=== PATIENT | male | born 1960 | race Caucasian/White ===

== ENCOUNTER 2020-07-06 04:17 | Observation (INO) | payer BC ==
[2020-07-06 05:44] LABS: Absolute Lymphocytes (CBC) 1.1 K/uL (0.7-4.9); Basophils % 0.6 % (0-1.3); Hematocrit 39.1 % (39.6-49.0); Lymphocytes % 10.9 % (15.3-44.8); RBC Red Blood Cell Count 4.26 M/uL (4.33-5.43)
[2020-07-06] MEDS ORDERED: dexAMETHasone 10 MG/ML VIAL ONE (05:45)
[2020-07-06] MEDS ORDERED: DIPHENHYDRAMINE 50 MG/ML VIAL ONE (05:45)
[2020-07-06] MEDS ORDERED: FAMOTIDINE 20 MG/2 ML VIAL IV ONE (05:46)
[2020-07-06] MEDS ORDERED: NA CHLORIDE 0.9% 500 ML ONE (05:46)
[2020-07-06] MEDS ORDERED: CEFTRIAXONE/SWI 1gm 1 GM/10 ML SYR ONE (05:46)
[2020-07-06] MEDS ORDERED: EPINEPHRINE INH 0.5 ML VIAL IH ONE (05:47)
[2020-07-06] MEDS ORDERED: EPINEPHRINE/PF 1 MG/ML AMP ONE (05:51)
[2020-07-06 05:56] LABS: Protime INR 0.86
[2020-07-06 06:05] LABS: ALT/SGPT 45 U/L (12-78); AST/SGOT 23 U/L (15-37); Albumin 3.9 g/dL (3.4-5.0); Alkaline Phosphatase 79 U/L (45-117); BUN Blood Urea Nitrogen 11 mg/dL (7-18); Bicarbonate 25 mmol/L (21-32); Bilirubin Direct < 0.1 mg/dL (0-0.2); Bilirubin Total 0.5 mg/dL (0.2-1.0); Glucose Level 160 mg/dL (74-106); NT PRO-BNP 43 pg/mL (<125); Potassium 4.3 mmol/L (3.5-5.1); Protein, Total 7.1 g/dL (6.4-8.2); Sodium Level 139 mmol/L (136-145); Troponin (Emerg Dept Use Only) < 0.02 ng/mL (0.0-0.045)
--- NOTE | 2020-07-06 07:22 | RAD REPORT ---
EXAM DESCRIPTION: [facility] Single View07/06/2020 5:32 am CLINICAL HISTORY: Cough COMPARISON: none FINDINGS: The lungs appear clear of acute infiltrate. The heart is normal size IMPRESSION: No acute abnormalities displayed
--- NOTE | 2020-07-06 07:29 | EDPHYS ---
Physician Documentation [facility] Name: Juan Dunn Age: 60 yrs Sex: Male : 1960 Arrival Date: 07/06/2020 Time: 04:18 Bed 17 Private MD: IESHA Physician Randal Mclean HPI: 07/06 05:14 This 60 yrs old Male presents to ER via Ambulatory with complaints of Throat cate Swelling, Breathing Difficulty. 05:14 The patient has shortness of breath at rest, with light activity. Onset: The cate symptoms/episode began/occurred 1 day(s) ago. Duration: The symptoms are continuous, and are steadily getting worse. The patient's shortness of breath has no apparent modifying factors. Associated signs and symptoms: Pertinent positives: non-productive cough. Severity of symptoms: At their worst the symptoms were moderate in the emergency department the symptoms are worse mildly. The patient has not experienced similar symptoms in the past. Historical: - Allergies: 04:40 No Known Allergies; sg - Home Meds: 08:27 pravastatin 40 mg oral tab 1 tab once daily [Active]; metformin 500 mg Oral tab 1 tab 2 tw2 times per day [Active]; levothyroxine 88 mcg tab 1 tab once daily [Active]; - PMHx: 04:43 Cancer; sg - PSHx: 04:40 tumor removal from tongue and esophagus; sg - Immunization history:: Adult Immunizations up to date. - Social history:: Smoking status: . - Family history:: not pertinent. ROS: 05:14 Constitutional: Negative for fever, chills, and weight loss, Eyes: Negative for injury, cate pain, redness, and discharge, ENT: Negative for injury, pain, and discharge, Neck: Negative for injury, pain, and swelling, Cardiovascular: Negative for chest pain, palpitations, and edema, Abdomen/GI: Negative for abdominal pain, nausea, vomiting, diarrhea, and constipation, Back: Negative for injury and pain, : Negative for injury, bleeding, discharge, and swelling, MS/Extremity: Negative for injury and deformity, Skin: Negative for injury, rash, and discoloration, Neuro: Negative for headache, weakness, numbness, tingling, and seizure, Psych: Negative for depression, anxiety, suicide ideation, homicidal ideation, and hallucinations, Allergy/Immunology: Negative for hives, rash, and allergies, Endocrine: Negative for neck swelling, polydipsia, polyuria, polyphagia, and marked weight changes. 05:14 ENT: Positive for difficulty handling secretions, difficulty swallowing, hoarseness, rhinorrhea, sinus congestion, sore throat. 05:14 Respiratory: Positive for shortness of breath, at rest. Exam: 05:14 Constitutional: This is a well developed, well nourished patient who is awake, alert, cate and in no acute distress. Head/Face: Normocephalic, atraumatic. Eyes: Pupils equal round and reactive to light, extra-ocular motions intact. Lids and lashes normal. Conjunctiva and sclera are non-icteric and not injected. Cornea within normal limits. Periorbital areas with no swelling, redness, or edema. Neck: Trachea midline, no thyromegaly or masses palpated, and no cervical lymphadenopathy. Supple, full range of motion without nuchal rigidity, or vertebral point tenderness. No Meningismus. Chest/axilla: Normal chest wall appearance and motion. Nontender with no deformity. No lesions are appreciated. Cardiovascular: Regular rate and rhythm with a normal S1 and S2. No gallops, murmurs, or rubs. Normal PMI, no JVD. No pulse deficits. Respiratory: Lungs have equal breath sounds bilaterally, clear to auscultation and percussion. No rales, rhonchi or wheezes noted. No increased work of breathing, no retractions or nasal flaring. Abdomen/GI: Soft, non-tender, with normal bowel sounds. No distension or tympany. No guarding or rebound. No evidence of tenderness throughout. Back: No spinal tenderness. No costovertebral tenderness. Full range of motion. Male : Normal genitalia with no discharge or lesions. Skin: Warm, dry with normal turgor. Normal color with no rashes, no lesions, and no evidence of cellulitis. MS/ Extremity: Pulses equal, no cyanosis. Neurovascular intact. Full, normal range of motion. Neuro: Awake and alert, GCS 15, oriented to person, place, time, and situation. Cranial nerves II-XII grossly intact. Motor strength 5/5 in all extremities. Sensory grossly intact. Cerebellar exam normal. Normal gait. Psych: Awake, alert, with orientation to person, place and time. Behavior, mood, and affect are within normal limits. 05:14 ENT: Posterior pharynx: Uvula: midline, edematous, erythema, swelling, erythema, that is mild, exudate, is not appreciated, peritonsillar mass, is not appreciated. 06:47 ECG was reviewed by the Attending Physician. [facility] Vital Signs: 04:40 Pulse 80; Resp 16; Temp 97.9; Pulse Ox 99% on R/A; sg 04:43 BP 141 / 91; sg 06:20 BP 135 / 85; Pulse 75; Resp 19; Pulse Ox 98% ; rr5 07:40 BP 143 / 95; Pulse 80; Resp 17; Pulse Ox 99% on R/A; tw2 08:40 BP 144 / 87; Pulse 75; Resp 17; Pulse Ox 96% on R/A; tw2 09:40 BP 147 / 84; Pulse 81; Resp 17; Pulse Ox 98% on R/A; tw2 10:40 BP 150 / 89; Pulse 72; Resp 17; Pulse Ox 97% on R/A; tw2 11:30 BP 147 / 88; Pulse 73; Resp 17; Pulse Ox 97% on R/A; tw2 12:45 BP 144 / 87; Pulse 88; Resp 17; Pulse Ox 97% on R/A; tw2 MDM: 04:[address] [facility] 05:17 Differential diagnosis: Bronchitis reactive airway disease. Antibiotic administration: cate rocephin. The patient's Wells Deep Vein Thrombosis Score was calculated as follows: Total Score: 0-2 Pts- Low Risk. The patient's pulmonary embolism risk score was calculated as follows: Total Score: 0-2 points. This patient was found to be at low risk for a pulmonary embolism by using the Well's assessment criteria. Immunization status: Influenza vaccine: Data reviewed: vital signs, nurses notes, EMS record, lab test result(s), EKG, radiologic studies, CT scan, plain films. Data interpreted: site monitor: rate is 80 beats/min, rhythm is regular, Pulse oximetry: on room air is 99 %. Test interpretation: by ED physician or midlevel provider: ECG, plain radiologic studies. 07/06 04:33 Order name: Strep; Complete Time: 06:45 [facility] 07/06 05:13 Order name: Basic Metabolic Panel [facility] 07/06 05:13 Order name: CBC with Diff [facility] 07/06 05:13 Order name: LFT's [facility] 07/06 05:13 Order name: Magnesium [facility] 07/06 05:13 Order name: NT PRO-BNP [facility] 07/06 05:13 Order name: PT-INR; Complete Time: 06:45 [facility] 07/06 05:13 Order name: Troponin (emerg Dept Use Only); Complete Time: 06:45 [facility] 07/06 05:14 Order name: Basic Metabolic Panel; Complete Time: 06:45 EDMS 07/06 05:14 Order name: CBC with Automated Diff; Complete Time: 06:45 EDMS 07/06 05:14 Order name: Liver (Hepatic) Function; Complete Time: 06:45 EDMS 07/06 05:14 Order name: Magnesium; Complete Time: 06:45 EDMS 07/06 05:14 Order name: NT PRO-BNP; Complete Time: 06:45 EDMS 07/06 07:04 Order name: Throat Culture EDWA 07/06 05:13 Order name: XRAY Chest (1 view); Complete Time: 07:50 [facility] 07/06 05:13 Order name: CT Soft Tissue Neck W/contr [facility] 07/06 08:18 Order name: Basic Metabolic Panel EDWA 07/06 08:18 Order name: Basic Metabolic Panel EDWA 07/06 08:18 Order name: Magnesium EDWA 07/06 08:18 Order name: Magnesium EDWA 07/06 08:18 Order name: CBC with Automated Diff EDWA 07/06 08:18 Order name: CBC with Automated Diff EDWA 07/06 08:45 Order name: COVID-19 : Document "Date of Symptom Onset" if Symptomatic. sv 07/06 09:55 Order name: CORONAVIRUS EDWA 07/06 10:36 Order name: SARS-COV-2 RT PCR EDWA 07/06 05:13 Order name: EKG; Complete Time: 05:14 [facility] 07/06 05:13 Order name: Cardiac monitoring; Complete Time: 05:59 [facility] 07/06 05:13 Order name: EKG - Nurse/Tech; Complete Time: 05:59 [facility] 07/06 05:13 Order name: IV Saline Lock; Complete Time: 05:47 [facility] 07/06 05:13 Order name: Labs collected and sent; Complete Time: 05:47 [facility] 07/06 05:13 Order name: O2 Per Protocol; Complete Time: 05:47 [facility] 07/06 05:13 Order name: O2 Sat Monitoring; Complete Time: :47 [facility] 07/06 08:10 Order name: CONS Physician Consult EDMS EC:47 Rate is 72 beats/min. QRS [place] is Normal. GA interval is normal. QRS interval is cate normal. QT interval is normal. No Q waves. T waves are Normal. No ST changes noted. Clinical impression: NSR w/ Non-specific ST/T Changes and No evidence of ischemia. Interpreted by me. Reviewed by me. Administered Medications: 05:52 Drug: Pepcid 40 mg Route: IVP; Site: right antecubital; rr5 05:53 Drug: EPINEPHrine 1mg/mL 1:1,000 0.4 ml Route: Sub-Q; Site: right upper arm; rr5 05:54 Drug: Benadryl 50 mg Route: IVP; Site: right antecubital; rr5 05:55 Drug: Decadron - Dexamethasone 10 mg Route: IVP; Site: right antecubital; rr5 05:55 Drug: NS 0.9% 500 ml Route: IV; Rate: bolus; Site: right antecubital; rr5 05:58 Drug: Rocephin - (cefTRIAXone) 1 grams Route: IVPB; Infused Over: 30 mins; Site: right rr5 antecubital; 06:00 Drug: Racemic EPINPHrine 0.5 ml Route: Inhalation; rr5 Disposition: 07/06/20 07:28 Hospitalization ordered by Jadiel Guo for Observation. Preliminary diagnosis is Angioneurotic edema - hx of tongue cancer, xrt, chemo. - Bed requested for Telemetry/MedSurg (observation). - Status is Observation. tw2 - Condition is Stable. - Problem is new. - Symptoms have improved. Signatures: Dispatcher [employer] EDMS Lena Gallo RN RN sv Yoan Barger RN RN sg Anderson, Corey, MD MD cha Attema, Lee, WRAPPER HANDS SPRAYER-C WRAPPER HANDS SPRAYER-Cla1 Padmini Elias RN RN tw2 Jadiel Gracai, RN RN rr5 Corrections: (The following items were deleted from the chart) 12:26 07:28 Hospitalization Ordered by Jadiel Guo MD for Observation. Preliminary sv diagnosis is Angioneurotic edema - hx of tongue cancer, xrt, chemo. Bed requested for Telemetry/MedSurg (observation). Status is Observation. Condition is Stable. Problem is new. Symptoms have improved. cate 13:20 12:26 07/06/2020 07:28 Hospitalization Ordered by Jadiel Guo MD for Observation. tw2 Preliminary diagnosis is Angioneurotic edema - hx of tongue cancer, xrt, chemo. Bed requested for Telemetry/MedSurg (observation). Status is Observation. Condition is Stable. Problem is new. Symptoms have improved. sv
--- NOTE | 2020-07-06 07:29 | ER ---
Nurse's Notes [facility] Name: Juan Dunn Age: 60 yrs Sex: Male : 1960 Arrival Date: 07/06/2020 Time: 04:18 Bed 17 Private MD: Diagnosis: Angioneurotic edema-hx of tongue cancer, xrt, chemo Presentation: 07/06 04:40 Chief complaint: Patient states: I have swelling at the base of my tongue, it feels sg like it is at the level of the cheeks now, its hard to breath through my mouth but not having a hard time breathing through my nose. Coronavirus screen: Client denies travel out of the [place] in the last 14 days. At this time, the client does not indicate any symptoms associated with coronavirus-19. Ebola Screen: Patient negative for fever greater than or equal to 101.5 degrees Fahrenheit, and additional compatible Ebola Virus Disease symptoms Patient denies exposure to infectious person. Patient denies travel to an Ebola-affected area in the 21 days before illness onset. No symptoms or risks identified at this time. Initial Sepsis Screen: Does the patient meet any 2 criteria? No. Patient's initial sepsis screen is negative. Does the patient have a suspected source of infection? No. Patient's initial sepsis screen is negative. Risk Assessment: Do you want to hurt yourself or someone else? Patient reports no desire to harm self or others. Onset of symptoms was July 06, 2020. Care prior to arrival: None. Transition of care: patient was not received from another setting of care. 04:40 Acuity: CARLINE 3 sg 04:40 Method Of Arrival: Ambulatory sg Historical: - Allergies: 04:40 No Known Allergies; sg - Home Meds: 08:27 pravastatin 40 mg oral tab 1 tab once daily [Active]; metformin 500 mg Oral tab 1 tab 2 tw2 times per day [Active]; levothyroxine 88 mcg tab 1 tab once daily [Active]; - PMHx: 04:43 Cancer; sg - PSHx: 04:40 tumor removal from tongue and esophagus; sg - Immunization history:: Adult Immunizations up to date. - Social history:: Smoking status: . - Family history:: not pertinent. Screenin:40 Abuse screen: Denies threats or abuse. Denies injuries from another. Nutritional rr5 screening: No deficits noted. Tuberculosis screening: No symptoms or risk factors identified. Fall Risk IV access (20 points). [place] Fall Scale indicates No Risk (0-24 pts). Assessment: 05:40 General: Appears in no apparent distress. uncomfortable, Behavior is calm, cooperative, rr5 appropriate for age. 05:40 Pain: Denies pain. Neuro: Level of Consciousness is awake, alert, obeys commands, rr5 Oriented to person, place, time. Cardiovascular: Capillary refill < 3 seconds Patient's skin is warm and dry. Rhythm is sinus rhythm. Respiratory: Reports difficulty of breathing Airway is patent Respiratory effort is even, unlabored, Respiratory pattern is regular, symmetrical. 05:40 GI: No signs and/or symptoms were reported involving the gastrointestinal system. : rr5 No signs and/or symptoms were reported regarding the genitourinary system. EENT: Throat swollen. Derm: Skin is intact, is healthy with good turgor, Skin temperature is warm. Musculoskeletal: Capillary refill < 3 seconds. 06:25 Reassessment: Patient appears in no apparent distress at this time. Patient is alert, rr5 oriented x 3, equal unlabored respirations, skin warm/dry/pink. Patient states symptoms have improved. 07:38 Reassessment: Patient appears in no apparent distress at this time. Patient and/or tw2 family updated on plan of care and expected duration. Pain level reassessed. Patient is alert, oriented x 3, equal unlabored respirations, skin warm/dry/pink. pt c/o "sore throat and a little bit of a headache", pt updated as to the POC and need for hospitalist to evaluated and see ENT specialist, pt agreeable and pleasant Patient states symptoms have improved. 07:40 Reassessment: Dr. Mclean at bedside at this time discussing poc. tw2 08:40 Reassessment: Patient appears in no apparent distress at this time. Patient and/or tw2 family updated on plan of care and expected duration. Pain level reassessed. Patient is alert, oriented x 3, equal unlabored respirations, skin warm/dry/pink. 09:40 Reassessment: Patient appears in no apparent distress at this time. Patient and/or tw2 family updated on plan of care and expected duration. Pain level reassessed. Patient is alert, oriented x 3, equal unlabored respirations, skin warm/dry/pink. 10:40 Reassessment: Patient appears in no apparent distress at this time. Patient and/or tw2 family updated on plan of care and expected duration. Pain level reassessed. Patient is alert, oriented x 3, equal unlabored respirations, skin warm/dry/pink. Patient states symptoms have improved. 11:30 Reassessment: Patient appears in no apparent distress at this time. Patient and/or tw2 family updated on plan of care and expected duration. Pain level reassessed. Patient is alert, oriented x 3, equal unlabored respirations, skin warm/dry/pink. 12:46 Reassessment: Patient appears in no apparent distress at this time. Patient and/or tw2 family updated on plan of care and expected duration. Pain level reassessed. Patient is alert, oriented x 3, equal unlabored respirations, skin warm/dry/pink. Vital Signs: 04:40 Pulse 80; Resp 16; Temp 97.9; Pulse Ox 99% on R/A; sg 04:43 BP 141 / 91; sg 06:20 BP 135 / 85; Pulse 75; Resp 19; Pulse Ox 98% ; rr5 07:40 BP 143 / 95; Pulse 80; Resp 17; Pulse Ox 99% on R/A; tw2 08:40 BP 144 / 87; Pulse 75; Resp 17; Pulse Ox 96% on R/A; tw2 09:40 BP 147 / 84; Pulse 81; Resp 17; Pulse Ox 98% on R/A; tw2 10:40 BP 150 / 89; Pulse 72; Resp 17; Pulse Ox 97% on R/A; tw2 11:30 BP 147 / 88; Pulse 73; Resp 17; Pulse Ox 97% on R/A; tw2 12:45 BP 144 / 87; Pulse 88; Resp 17; Pulse Ox 97% on R/A; tw2 ED Course: 04:18 Patient arrived in ED. cl3 04:32 Randal Mclean MD is Attending Physician. cate 04:40 Arm band placed on. sg 04:40 Strep swab sent to lab. sg 04:42 Triage completed. sg 05:32 XRAY Chest (1 view) In Process Unspecified. EDMS 05:35 Inserted saline lock: 18 gauge in right antecubital area, using aseptic technique. ds4 Blood collected. 05:52 Jadiel Gracia, RN is Primary Nurse. rr5 06:27 CT Soft Tissue Neck W/contr In Process Unspecified. EDMS 07:04 Primary Nurse role handed off by Jadiel Gracia, ENRICO tw2 07:04 Padmini Elias, RN is Primary Nurse. tw2 07:25 Jadiel Guo MD is Hospitalizing Provider. [facility] 09:05 COVID-19 : Document "Date of Symptom Onset" if Symptomatic. Sent. tw2 12:50 Report given to ENRICO Dickson. tw2 12:50 Patient admitted, IV remains in place. tw2 13:19 No provider procedures requiring assistance completed. tw2 Administered Medications: 05:52 Drug: Pepcid 40 mg Route: IVP; Site: right antecubital; rr5 05:53 Drug: EPINEPHrine 1mg/mL 1:1,000 0.4 ml Route: Sub-Q; Site: right upper arm; rr5 05:54 Drug: Benadryl 50 mg Route: IVP; Site: right antecubital; rr5 05:55 Drug: Decadron - Dexamethasone 10 mg Route: IVP; Site: right antecubital; rr5 05:55 Drug: NS 0.9% 500 ml Route: IV; Rate: bolus; Site: right antecubital; rr5 05:58 Drug: Rocephin - (cefTRIAXone) 1 grams Route: IVPB; Infused Over: 30 mins; Site: right rr5 antecubital; 06:00 Drug: Racemic EPINPHrine 0.5 ml Route: Inhalation; rr5 Outcome: 07:28 Decision to Hospitalize by Provider. [facility] 13:19 Admitted to Med/surg accompanied by tech, via wheelchair, room 215, with chart. tw2 13:19 Condition: stable 13:19 Instructed on the need for admit. 13:20 Patient left the ED. tw2 Signatures: Dispatcher [employer] EDYoan Fortune, Randal Calix RN, MD MD cha Swanson, Donovan ds4 Padmini Elias RN RN tw2 Jadiel Gracia, ENRICO RN rr5 Michael Carver cl3
--- NOTE | 2020-07-06 08:22 | P.HP ---
Certification for Inpatient Patient admitted to: Observation With expected LOS: <2 Midnights Practitioner: I am a practitioner with admitting privileges, knowledge of patient current condition, hospital course, and medical plan of care. Services: Services provided to patient in accordance with Admission requirements found in Title 42 Section 412.3 of the Code of Federal Regulations Patient History Date of Service: 07/06/20 Reason for admission: Throat swelling, difficulty breathing History of Present Illness: 60yo M, PMH: "throat cancer" now s/p resection, chemo, radiation who presents to ED due to worsening bilateral throat swelling and difficulty breathing. He reports he first noticed this ~6pm yesterday and slowly got worse. Despite this worsening, he stayed at home and went to bed, only to wake up with difficulty breathing. In the ED he was noted to have stridor and was given racemic Epi, decadron, benadryl, and rocephin with some improvement. Patient reports having R inferior molar infection / cracked tooth ~1 month ago which improved/resolved with antibiotics. He was told to have it removed, however he has not scheduled this yet. He feels the swelling and pain is similar but a lot worse compared to his initial infection 1 month ago. He also endorses some R inner ear pain, R jaw pain, and sore throat - all began around the same time yesterday. CT was performed in ED which revealed some diffuse swelling/edema of inferior oropharynx/tongue, with possible mass at base of tongue vs scarring. Labwork without any leukocytosis, rather unremarkable. ED physician spoke with the patient's ENT, Dr. Gibson, who recommended admission and would see the patient in consult later today. Allergies No Known Allergies Allergy (Unverified 07/06/20 08:34) - Past Medical/Surgical History -: throat cancer -: NIDDM2 -: Hypothyroid - radiation induced -: HLD -: throat cancer resection -: tonsillectomy - Family History Family History: Reviewed- Non-Contributory - Social History Smoking Status: Never smoker Alcohol use: Yes Place of Residence: Home Review of Systems 10-point ROS is otherwise unremarkable Physical Examination - Physical Exam General: Alert, In no apparent distress, Oriented x3 HEENT: Other (R lower facial swelling, anterior neck swelling R>L, tenderness along R jaw. unable to visualize R TM due to ear wax), Sclerae nonicteric Respiratory: Clear to auscultation bilaterally, Normal air movement Cardiovascular: No edema, Regular rate/rhythm Gastrointestinal: Soft and benign, Non-distended, No tenderness Musculoskeletal: No tenderness Integumentary: No rashes Neurological: Normal speech, Normal affect - Studies Laboratory Data (last 24 hrs) 07/06/20 05:25: PT 9.9, INR 0.86 07/06/20 05:25: WBC 10.30, Hgb 13.9, Hct 39.1 L, Plt Count 278 07/06/20 05:25: Sodium 139, Potassium 4.3, BUN 11, Creatinine 0.67, Glucose 160 H, Magnesium 2.0, Total Bilirubin 0.5, AST 23, ALT 45, Alkaline Phosphatase 79 Microbiology Data (last 24 hrs): 07/06/20 04:48 Throat Group A Streptococcus Rapid Screen - Final Assessment and Plan - Advance Directives Does patient have a Living Will: No Does patient have a Durable POA for Healthcare: No Physician Review Additional Text: Problem List Throat swelling / pain h/o throat cancer Hypothyroid, radiation induced HLD NIDDM2 -concern for infection, pt with recent tooth infection ~4 weeks ago, with similar but much milder symptoms, resolved with antibiotics. -cover for anaerobic infection with unasyn, no abscess noted on CT -ENT consulted - and familiar with patient's history -continue benadryl, pepcid, decadron for swelling -monitor closely -sliding scale insulin / accucheks -obtain and resume home medications Dispo: pending further evaluation by ENT, anticipate dc in next 24-48hrs Time Spent Managing Pts Care (In Minutes): 60
[2020-07-06] MEDS: dexAMETHasone 4 MG/ML VIAL IV SCH ×2 (09:00→18:22)
--- NOTE | 2020-07-06 09:08 | RAD REPORT ---
EXAM DESCRIPTION: CT - Soft Tissue Neck W/Contr - 07/06/2020 6:57 am CLINICAL HISTORY: The patient indicates swelling at the base of the tongue. 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 TECHNIQUE: Axial computed tomography images of the neck with intravenous contrast. Sagittal and co lamar reformatted images were created and reviewed. This CT exam was performed using one or more of the following dose reduction techniques: automated exposure control, adjustment of the mA and/or k V according to patient size, and/or use of iterative reconstruction technique. COMPARISON: No relevant prior studies available. FINDINGS: Oral cavity: Slightly ill-defined masslike hypodensity of the inferior left paramedian a spect of the tongue measuring approximately 2.7 x 2.4 x 3.2 cm. There is ill-defined edema along the base of the tongue and right tonsillar pillar extending to the aryepiglottic folds/larynx and right strap musculature. There is mild mass effect on the ant erior and right aspect of the pharyngeal airway. There is no organized or drainable collection. Oropharynx: See above. Hypopharynx: No abnormality noted. Larynx: See above. Trachea: No abnormality noted. Retropharyngeal space: No abnormality noted. Submandibular/parotid glands: No abnormality noted. Glands are normal in size. Thyroid: No abnormality noted. Bones/joints: Degenerative changes noted in the spine most prominent at C3-C5. Vasculature: No acute abnormality noted. Lymph nodes: There is an enlarged right paramedian submental lymph node measuring short axis dime nsion 1.1 cm. Sinuses: Mild chronic bilateral maxillary and left sphenoid sinus thickening noted. Lung apices: There is apical erosion of the right posterior mandibular molar. IMPRESSION: 1. There is deformity of the base of the tongue which is asymmetrically hypodense with possible mass in the left base. Correlation with prior postoperative imaging needed to evaluate fo r recurrent mass versus scarring. 2. There is diffuse edema at the base of the tongue extending along the right tonsillar pillar, lar ynx and right strap musculature with mild mass effect on the anterior right aspect of the airway with out occlusion. Consider infectious etiologies. Changes could be secondary to radiation if there i s such a history. 3. Enlarged right paramedian submental lymph node. 4. There is apical erosion of the right posterior mandibular molar. Electronically signed by: Marce Rowe MD 07/06/2020 6:41 AM CDT Due to temporary technical issues with the PACS/Fluency reporting system, reports are being signed by the in house radiologists without review as a courtesy to insure prompt reporting. The interpreting radiologist is fully responsible for the content of the report.
[2020-07-06] MEDS: INSULIN -REGULAR HUMAN 50 UNIT/0.5 ML ML SQ SCH ×2 (11:30→16:30)
[2020-07-06] MEDS ORDERED: DIPHENHYDRAMINE 50 MG/ML VIAL IV PRN (12:00)
[2020-07-06 13:27] VITALS: TEMP 97.9
[2020-07-06 13:36] VITALS: O2SAT 97
[2020-07-06 13:43] VITALS: BMI 26.1
[2020-07-06] MEDS: AMPICILLIN/SULBACT 3 GM in NA CHLORIDE 0.9% 100 ML IVPB SCH ×2 (14:04→18:22)
[2020-07-06 17:24] VITALS: BP 155/83
--- NOTE | 2020-07-06 19:23 | P.DS ---
Admission Date: 07/06/20 Discharge Date: 07/06/20 Disposition: ROUTINE DISCHARGE Discharge Condition: GOOD Reason for Admission: Throat swelling, difficulty breathing Consultations: Dr. Santos ENT Procedures: Chest x-ray COMPARISON: none FINDINGS: The lungs appear clear of acute infiltrate. The heart is normal size IMPRESSION: No acute abnormalities displayed CT neck FINDINGS: Oral cavity: Slightly ill-defined masslike hypodensity of the inferior left paramedian aspect of the tongue measuring approximately 2.7 x 2.4 x 3.2 cm. There is ill-defined edema along the base of the tongue and right tonsillar pillar extending to the aryepiglottic folds/larynx and right strap musculature. There is mild mass effect on the anterior and right aspect of the pharyngeal airway. There is no organized or drainable collection. Oropharynx: See above. Hypopharynx: No abnormality noted. Larynx: See above. Trachea: No abnormality noted. Retropharyngeal space: No abnormality noted. Submandibular/parotid glands: No abnormality noted. Glands are normal in size. Thyroid: No abnormality noted. Bones/joints: Degenerative changes noted in the spine most prominent at C3- C5. Vasculature: No acute abnormality noted. Lymph nodes: There is an enlarged right paramedian submental lymph node measuring short axis dimension 1.1 cm. Sinuses: Mild chronic bilateral maxillary and left sphenoid sinus thickening noted. Lung apices: There is apical erosion of the right posterior mandibular molar. IMPRESSION: 1. There is deformity of the base of the tongue which is asymmetrically hypodense with possible mass in the left base. Correlation with prior postoperative imaging needed to evaluate for recurrent mass versus scarring. 2. There is diffuse edema at the base of the tongue extending along the right tonsillar pillar, larynx and right strap musculature with mild mass effect on the anterior right aspect of the airway without occlusion. Consider infectious etiologies. Changes could be secondary to radiation if there is such a history. 3. Enlarged right paramedian submental lymph node. 4. There is apical erosion of the right posterior mandibular molar. Medical problem list Throat/mouth swelling and pain likely secondary to dental infection right posterior mandibular molar Hypertension Secondary hypothyroidism Diabetes mellitus type 2 Personal history of throat cancer with radiation/surgical intervention Brief History of Present Illness: 60yo M, PMH: "throat cancer" now s/p resection, chemo, radiation who presents to ED due to worsening bilateral throat swelling and difficulty breathing. He reports he first noticed this ~6pm yesterday and slowly got worse. Despite this worsening, he stayed at home and went to bed, only to wake up with difficulty breathing. In the ED he was noted to have stridor and was given racemic Epi, decadron, benadryl, and rocephin with some improvement. Patient reports having R inferior molar infection / cracked tooth ~1 month ago which improved/resolved with antibiotics. He was told to have it removed, however he has not scheduled this yet. He feels the swelling and pain is similar but a lot worse compared to his initial infection 1 month ago. He also endorses some R inner ear pain, R jaw pain, and sore throat - all began around the same time yesterday. CT was performed in ED which revealed some diffuse swelling/edema of inferior oropharynx/tongue, with possible mass at base of tongue vs scarring. Labwork without any leukocytosis, rather unremarkable. ED physician spoke with the patient's ENT, Dr. Gibson, who recommended admission and would see the patient in consult later today. Hospital Course: Patient was admitted to the hospital this morning, in the emergency department he was given medications to treat allergic reaction including subcu epi, racemic epi, Pepcid, Benadryl, steroids. Patient was started on IV antibiotics with unasyn. Throughout the day patient's swelling significantly improved almost completely resolves. Patient was seen and evaluated by ENT who has seen him previously and operated on him for Throat cancer. After evaluation by ENT patient was deemed safe for discharge with close followup with dental for evaluation and treatment of dental infection that likely would to symptoms that followed. Patient will be discharged with clindamycin and will take 300 mg t.i.d. for 10 days in addition to Decadron 4 mg p.o. b.i.d. p.r.n. for swelling. Patient given strict return precautions for any worsening of swelling, difficulty breathing, changes in speech or ability to swallow/open mouth. Patient also will need a followup with ENT on an outpatient basis. Patient reports he has good support at home with a who is a nurse. Patient states he local dentist the morning to schedule urgent appointment for treatment, again strict return precautions given patient verbalizes understanding. Vital Signs/Physical Exam: Temp Pulse Resp BP Pulse Ox 97.9 F 92 H 16 155/83 H 98 07/06/20 16:00 07/06/20 16:00 07/06/20 16:00 07/06/20 16:00 07/06/20 16:00 General: Alert, In no apparent distress, Oriented x3 HEENT: Atraumatic, Normocephalic, PERRLA, Mucous membr. moist/pink, Other (Able to fully open mouth, complete resolution of sublingual edema, significant resolution of submandibular edema. Able to speak clearly without any muffled voice, airway widely patent.) Neck: Supple, 2+ carotid pulse no bruit, Other Respiratory: Clear to auscultation bilaterally, Normal air movement Cardiovascular: No edema, Regular rate/rhythm, Normal S1 S2 Capillary refill: <2 Seconds Gastrointestinal: Normal bowel sounds, Soft and benign, No tenderness, No masses, No rebound Musculoskeletal: No contractures, No erythema, No tenderness Neurological: Normal gait, Normal speech, Normal strength at 5/5 x4 extr, Normal tone, Sensation intact Laboratory Data at Discharge: WBC 10.30 K/uL (4.3-10.9) 07/06/20 05:25 Hgb 13.9 g/dL (13.6-17.9) 07/06/20 05:25 Hct 39.1 % (39.6-49.0) L 07/06/20 05:25 Plt Count 278 K/uL (152-406) 07/06/20 05:25 PT 9.9 SECONDS (9.5-12.5) 07/06/20 05:25 INR 0.86 07/06/20 05:25 Sodium 139 mmol/L (136-145) 07/06/20 05:25 Potassium 4.3 mmol/L (3.5-5.1) 07/06/20 05:25 BUN 11 mg/dL (7-18) 07/06/20 05:25 Creatinine 0.67 mg/dL (0.55-1.3) 07/06/20 05:25 Glucose 160 mg/dL (74-106) H 07/06/20 05:25 Magnesium 2.0 mg/dL (1.8-2.4) 07/06/20 05:25 Total Bilirubin 0.5 mg/dL (0.2-1.0) 07/06/20 05:25 AST 23 U/L (15-37) 07/06/20 05:25 ALT 45 U/L (12-78) 07/06/20 05:25 Alkaline Phosphatase 79 U/L (45-117) 07/06/20 05:25 Home Medications: Aspirin [Aspirin EC] 81 mg PO DAILY 07/06/20 Levothyroxine [Synthroid] 88 mcg PO [id number] 07/06/20 Metformin ER [Glucophage ER] 1,000 mg PO BEDTIME 07/06/20 Pravastatin Sodium 40 mg PO BID 07/06/20 clindamycin HCL [Cleocin HCl] 300 mg PO TID 10 Days #30 capsule 07/06/20 dexAMETHasone [Decadron] 4 mg PO BID #10 tab 07/06/20 New Medications: clindamycin HCL [Cleocin HCl] 300 mg PO TID 10 Days #30 capsule dexAMETHasone [Decadron] 4 mg PO BID #10 tab Physician Discharge Instructions: Patient was admitted to the hospital this morning, in the emergency department he was given medications to treat allergic reaction including subcu epi, racemic epi, Pepcid, Benadryl, steroids. Patient was started on IV antibiotics with unasyn. Throughout the day patient's swelling significantly improved almost completely resolves. Patient was seen and evaluated by ENT who has seen him previously and operated on him for Throat cancer. After evaluation by ENT patient was deemed safe for discharge with close followup with dental for evaluation and treatment of dental infection that likely would to symptoms that followed. Patient will be discharged with clindamycin and will take 300 mg t.i.d. for 10 days in addition to Decadron 4 mg p.o. b.i.d. p.r.n. for swelling. Patient given strict return precautions for any worsening of swelling, difficulty breathing, changes in speech or ability to swallow/open mouth. Patient also will need a followup with ENT on an outpatient basis. Patient reports he has good support at home with a who is a nurse. Patient states will call dentist the morning to schedule urgent appointment for treatment, again strict return precautions given patient verbalizes understanding. Diet: Regular Activity: Ad kenia Followup: Lena Santos MD [ACTIVE - CAN ADMIT] - Unknown,U [Primary Care Provider] - Time spent managing pt's care (in minutes): 55
[2020-07-06] MEDS ORDERED: FAMOTIDINE 20 MG/2 ML VIAL IV SCH (21:00)
--- NOTE | 2020-07-07 09:54 | CON ---
Reason For Consultation: Neck and facial swelling. History Of Present Illness: Mr. Dunn is a 60-year-old man who presented to the emergency room with swelling of the submental, right submandibular neck, and right lower face. He reports that the swelling occurred and worsened over several hours prior to his presentation to the Emergency Room. He came to the emergency room due to the degree of progression, which was beginning to affect and spread to the floor of mouth and tongue affecting his speech and beginning to affect swallowing and breathing. In the emergency room he was treated with medications for possible angioedema as well as steroids and antibiotics. He underwent a CT scan that demonstrated some abnormalities of the base of tongue as well as some prominent submandibular lymph nodes and mild soft tissue swelling. He was placed under observation and over the last several hours has improved significantly. His speech and voice have returned to baseline. The swelling of the neck is significantly improved and his pain is significantly improved. The patient reports that about 1 month ago, he had some similar though less severe swelling and pain and was seen by his dentist. There was concern for a dental origin for these symptoms, but the x-ray was inconclusive and he was referred to a different specialized dentist. That dentist felt there was a cracked tooth that may be causing problems, but due to remote history of radiation to the neck and jaw bone for base of tongue squamous cell carcinoma, extraction was not recommended and referral was made to the [facility] for further evaluation. The patient was treated during that time with some antibiotics and his symptoms were significantly improved. He did intent to proceed with treatment, but had some issues going on at work and some pending visits from his son, who was serving [place] and would only be home for a limited time. Therefore, he had elected to defer his dental treatment until those other professional and social obligations were to take precedence. The patient has a history of base of tongue cancer treated at [facility] by Ankit Santana about 10 years ago with surgery and subsequent radiation therapy. He has done well. He was followed for several years with no prior evidence of recurrence and has not been under active surveillance for some time. 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 Allergies: NKDA Physical Examination: General: The patient is in no acute distress. He is alert and oriented. HEENT: Pupils are equal, round, reactive. Extraocular movements are intact. His external nose and nares are unremarkable. Intranasal exam is not performed at this time. External ears and meatus are unremarkable. The otoscopic exam is not performed at this time. The patient's lips are normal with no visible or palpable swelling. His teeth are grossly in good to fair repair. The floor of mouth is soft and flat with no evidence of swelling. The oral tongue demonstrates mild dryness, but no visible or palpable ulcerations or masses and no visible swelling. His speech is easily understandable and at baseline per his who was at the bedside. Neck: Demonstrates significant palpable fibrosis consistent with his history of radiation treatment. There are some hypervascularity again often seen following radiation treatment. There is looseness of the submental skin with no induration or palpable lymphadenopathy within the doulap. The patient's range of motion is mildly limited by the fibrosis. The skin of the neck is not red nor tender at this time. Assessment: Given the patient's history over the last month, I suspect the swelling last night was a rapid exacerbation of the patient's underlying dental issue and he appears to be well stabilized and significantly improved with medical therapy. There is no indication at this time for any head and neck surgery. The patient has a resources for planned dental followup. We briefly discussed osteoradionecrosis and its risks in patients requiring dental extractions following head and neck radiation treatment. We discussed that he may require hyperbaric oxygen treatments prior to dental extractions in order to reduce the risks of osteoradionecrosis. He understands these risks. We also discussed other options for expert dental care including local [facility] staff, the [facility] [place], [facility] in [place], or the Oral Surgery Department at [facility]. We discussed that the dental issues that arise in this manner and respond to treatment can often have a remitting and relapsing course and that each relapse tends to escalate in severity. He is strongly advised not to further delay dental treatment if feasible. His is a nurse and understanding of these complicating factors, the patient can follow up with me on an as-needed basis. My findings were communicated with the admitting physician, Dr. Guo on the day of the consultation. CHERY/DENZEL Voice ID: [id number] Report ID: [id number]
== END 2020-07-06 19:20 | disposition home or self-care (01) ==
LOC: ER 04:17 → ERHOLD 08:28 → 2ND 12:51
PROVIDERS: ADMIT Hospitalist; ATTEND Hospitalist
DX: K04.7 Periapical abscess without sinus (principal); E11.9 Type 2 diabetes mellitus without complications; Z85.810 Personal history of malignant neoplasm of tongue; Z92.3 Personal history of irradiation; I10 Essential (primary) hypertension; E89.0 Postprocedural hypothyroidism; Z20.822 Contact with and (suspected) exposure to COVID-19; E78.5 Hyperlipidemia, unspecified; Z79.84 Long term (current) use of oral hypoglycemic drugs
CPT/HCPCS: 93005; 87070; 85025; 80048; 36415; 83735; 85610; 82565; 82947; 80076; 87081; 84484; 84145; 83880; 86140; 70491; 71045; 94760; 96375; 96372; 96374; 99285; U0003; Q9967; J1100 ×2; J0171; J1200; J0696; J7040; J0295; G0378